=== PATIENT | female | born 1985 | race Caucasian/White ===

== ENCOUNTER 2020-11-23 18:12 | Emergency (ER) | payer SELFPAY ==
[2020-11-23 18:14] VITALS: BP 127/66; PULSE 86; RESP 16; TEMP 36.8; O2SAT 100; BMI 29.2
--- NOTE | 2020-11-23 18:54 | ED.VIS.UPPEX ---
History of Present Illness Chief Complaint: Laceration Informant: Patient Occurred: Hours - 1 Mechanism/Context: Injury - accidentally cut finger w/ new hedge trimmers - battery powered Context: Sudden Onset Timing: Continuous Quality of Pain: - - sore Location: left middle fingertip Current Severity: Mild Maximum Severity: Severe Worsened by: palpation Relieved by: leaving alone Associated Symptoms: Negative for: Parasthesia, Weakness, Loss of Funtion Narrative: Using new hedge tremors accidentally cut her left finger. [id number]. No other injuries. Tetanus Immunization: Unknown Past Medical History - Allergies and Home Meds Allergies/Adverse Reactions: Allergies No Known Allergies Allergy (Verified 11/23/20 18:15) Past Medical History: None Smoking Status: Never smoker Review of Systems General: Denies: Chills, Fever, Sweats Musculoskeletal: Reports: Extremity Pain. Denies: Back pain Skin: Reports: Wounds. Denies: Rash Neurological: Denies: Headache, Weakness, Numbness Physical Exam Vital Signs/Narrative: Vital Signs Temp Pulse Resp BP Pulse Ox 11/23/20 18:14 98.3 F 86 16 127/66 H 100 General: Well nourished, Well developed, - - Well-appearing no distress Head: Normocephalic, Atraumatic Extremeties: All tendon function intact left fingers, the middle finger is the only one injured and it is distal. FDP intact in addition to extensor. Skin: Normal color, No rash, Trauma - SQ macerated, stellate 4cm laceration to the left middle fingertip/pad. No nail injury or subungual hematoma. Neurological: Alert, Oriented x3, Cranial nerves II-XII grossly intact, Normal Strength, Normal Sensation, Normal Gait Psychological: Normal affect, Normal Mood Diagnostic/Tx/Re-eval Clinical Impression(s) from Imaging Studies Finger X-Ray 11/23/20 19:02 IMPRESSION: Normal bones and joints. No radiopaque foreign bodies are seen. Electronically Signed: Farhat Arizmendi MD at 19:24 EST , Service support , - Medical Decision Making X-ray showed no distal phalanx fracture. Laceration was repaired with Vicryl Rapide, this should give long enough tensile strength given that there is no joint involved. She was given appropriate discharge instructions, we discussed signs and symptoms of infection and reasons to return. She declined tetanus update, states that she will research it and decide later. Procedures - Lacerations L middle finger Length: 4 cm Depth: Sub Q - into pad tissue Shape: Stellate Prep: Sterile Conditions, Chlorhexadine Laceration repair: Digital block, Irrigated, Lidocaine - 2%, 4cc Irrigated (ml): 50 Number of Sutures/Entiat: 9 Suture Information: Vicryl - Rapide, Simple, 5-0 Comment: After cleansing, there was brisk arteriolar bleeding. A turnicot was placed during the suture and was in place for 15-20 minutes, providing a bloodless field. There were no complications. ED Disposition - Plan for ED Patient: Disposition: Home or Assisted Living Diagnosis: Laceration of left middle finger w/o foreign body w/o damage to nail Instructions: ED Laceration, Hand: All Closures Referrals: Doctor,Your [STAFF PHYSICIAN] - As Needed Additional Instructions: Sutures are absorbable and should take about a week or 10 days. If they fall out, do not be concerned and you may pull it the rest of the way.
--- NOTE | 2020-11-23 19:02 | RAD_ITS ---
STUDY: X-RAY - LEFT HAND, ATTENTION MIDDLE FINGER REASON FOR EXAM: Female, 35 years old. LACERATION TO LEFT MIDDLE FINGER WHILE DOING YARD WORK. TECHNIQUE: 3 view(s) of the finger were obtained. COMPARISON: None. FINDINGS: Normal metacarpal head. Normal metacarpophalangeal joint. Normal proximal phalanx. Normal middle phalanx. Normal distal phalanx. Normal proximal interphalangeal joint. Normal distal interphalangeal joint. There is soft tissue irregularity of the tip of the digit consistent with a history of laceration. RAD/Finger(s) Min 2 Views IMPRESSION: Normal bones and joints. No radiopaque foreign bodies are seen. Electronically Signed: Farhat Arizmendi MD at 19:24 EST , Service support ,
[2020-11-23] MEDS: Lidocaine 2% (20 ml mdv) 20 ML Vial INFILT (21:24)
== END 2020-11-23 21:30 | disposition home or self-care (01) ==
PROVIDERS: Emergency Provider Emergency Medicine
DX: S61.213A Laceration without foreign body of left middle finger without damage to nail, initial encounter (principal); W29.3XXA Contact with powered garden and outdoor hand tools and machinery, initial encounter; Y93.9 Activity, unspecified; Y92.9 Unspecified place or not applicable; Y99.9 Unspecified external cause status
CPT/HCPCS: 12002; 73140; 99283